=== PATIENT | male | born 1975 | race Caucasian/White ===

== ENCOUNTER → 2021-06-11 09:38 | Outpatient (CLI) | payer BC, SELFPAY ==
--- NOTE | 2021-06-11 12:00 | CT_ITS ---
EXAM: CT ABDOMEN WITH INTRAVENOUS CONTRAST CLINICAL INDICATION: A large gallbladder TECHNIQUE: Helically acquired images were obtained of the abdomen with intravenous contrast. This CT exam was performed using one or more of the following dose reduction techniques: automated exposure control, adjustment of the mA and/or kV according to patient size, and/or use of iterative reconstruction technique. This report was created using Intellistream report generation technology. Oral contrast was administered. Coronal and sagittal reformatted images were created and reviewed. CONTRAST: 100 mL Isovue-300 COMPARISON: None. FINDINGS: LOWER THORAX: Unremarkable. Lung bases are clear. No cardiomegaly. No significant pericardial effusion. LIVER: Unremarkable. Homogeneous. No focal mass. GALLBLADDER AND BILE DUCTS: Unremarkable. No calcified gallstones. No gallbladder distention or wall edema. No intra- or extrahepatic biliary ductal dilation. PANCREAS: Unremarkable. No focal cystic or solid mass. SPLEEN: Unremarkable. Normal size without focal cystic or solid mass. ADRENALS: Unremarkable. No nodules. KIDNEYS AND URETERS: Unremarkable. Normal renal size and position. No hydronephrosis. STOMACH AND BOWEL: Oral contrast filled structure of the right anterolateral abdomen measures 3.9 x 6.4 cm on image 58 of series 2 and appears to be contiguous with bowel on image 30 of series 601. Dependent calcification is noted within the lumen. No stomach or bowel distention. No focal inflammatory change. INTRAPERITONEAL SPACE: Unremarkable. No ascites or other fluid collection. No free air. BONES/JOINTS: Unremarkable. No suspicious lytic or blastic abnormality. SOFT TISSUES: Very small periumbilical fat-containing hernia. VASCULATURE: Mild atherosclerosis. Abdominal aorta is non-dilated. LYMPH NODES: No enlarged lymph nodes. CT/Abdomen WITH IV Contrast IMPRESSION: 1. No gallbladder wall thickening or pericholecystic fluid/inflammation. No intrahepatic bile duct dilation. 2. Suspect small bowel diverticulum of the right abdomen with luminal calcification/calculus. No associated inflammation or wall thickening. Electronically Signed: Kaden Alvarado MD (Brooks) at 12:20 EST , Service support ,
[2021-06-12 13:50] LABS: Carcinoembryonic Antigen 0.6 ng/mL (0.0-4.7)
== END ==
LOC: CT 09:38
PROVIDERS: PCP Internal Medicine; Visit Provider Surgery
DX: K82.8 Other specified diseases of gallbladder (principal); K80.10 Calculus of gallbladder with chronic cholecystitis without obstruction
CPT/HCPCS: 74160; 82378; 86301; Q9967; A4216

== ENCOUNTER 2021-06-16 09:43 | Outpatient (CLI) | payer OTHER, SELFPAY ==
--- NOTE | 2021-06-16 09:56 | NM_ITS ---
CLINICAL: 46-year-old male with reported history of apparent abdominal pain. RADIONUCLIDE HEPATOBILIARY SCINTIGRAPHY COMPARISON: CT of the abdomen report 06/11/2021 FINDINGS: Following the intravenous administration of 5.2 mCi of 99m Tc Mebrofenin, hepatobiliary images reveal: 1. Relatively prompt and homogeneous radiopharmaceutical concentration is noted by a normal sized liver. No parenchymal defects are identified. 2. Gallbladder activity is not identified during 120 minutes of sequential imaging. 3. Small intestinal tract is observed at 15 minutes post radiopharmaceutical administration. 4. Washout of the radiopharmaceutical by the hepatic parenchyma appears qualitatively normal. NM/Hepatobilliary Img w/Pharm Int IMPRESSION: 1. ABNORMAL 99m Tc Mebrofenin hepatobiliary imaging examination. A. Nonvisualization of the gallbladder at 120 minutes post radiopharmaceutical administration in the nonacute setting is consistent with a high probability of chronic cholecystitis in patients with intermediate to high pretest probabilities of hepatobiliary disease and who have fasted for more than 4 and less than 24 hours. (Yo et al, Nucl Med [facility] [place] Press pg. 35, 1980). Electronically Signed: Jorje Chaney DO at 22:08 EST Tel , Service support ,
== END 2021-06-16 23:59 | disposition short-term general hospital (02) ==
LOC: NM 09:48
PROVIDERS: PCP Internal Medicine; Referring Provider Surgery; Visit Provider Surgery
DX: K82.8 Other specified diseases of gallbladder (principal); K80.10 Calculus of gallbladder with chronic cholecystitis without obstruction
CPT/HCPCS: 78227; A9537

== ENCOUNTER 2021-06-18 07:53 | Outpatient (CLI) | payer OTHER, SELFPAY ==
--- NOTE | 2021-06-18 08:15 | RAD_ITS ---
PROCEDURE: SMALL BOWEL SERIES DATE OF EXAMINATION: 06/18/2021.. INDICATION: Male, 46 years old. One-month history of a palpable right upper quadrant mass. PHYSICIAN: Dane Rivero M.D. FLUOROSCOPY TIME (if supplied): (1:10) minutes/seconds. 20 images were obtained. TECHNIQUE: Radiographic and fluoroscopic images were taken of the small intestine following the ingestion of barium. COMPARISON: None. FINDINGS: A preliminary supine KUB was obtained. There is an unremarkable bowel gas pattern. Fecal material is present throughout the colon. A 3.2 cm x 3.4 cm rounded calcification in the medial right mid abdomen. The lung bases are unremarkable. The osseous structures are normal. The patient orally ingested approximately 12 ounces of thin barium Normal visualized fundus, body, and antrum of the stomach. Mildly distended jejunal loops. Normal visualized mucosal folds of the jejunum and ileum. There are no demonstrated dilatations, strictures, or masses of the small intestine. There is no mass displacement of the loops of small intestine. On the 180 minute image, there is a 5.8 cm x 7.2 cm rounded circumscribed structure with contrast within it. This corresponds to the CT abdomen of the containing the calcification. This most likely represents a diverticulum arising from the medial aspect of the distal ascending colon. There is a normal motor pattern with barium reaching the colon within approximately 120 minutes. Spot films under fluoroscopic observation demonstrated a normal terminal ileum and ileocecal valve. RAD/Small Bowel Series Only IMPRESSION: Findings suggestive of a diverticulum measuring 7.2 cm x 5.8 cm arising from the medial aspect of the distal ascending colon. Electronically Signed: Dane Rivero MD at 12:21 EST , Service support ,
== END 2021-06-18 23:59 | disposition short-term general hospital (02) ==
LOC: RAD 07:54
PROVIDERS: PCP Internal Medicine; Referring Provider Surgery; Visit Provider Surgery
DX: R19.00 Intra-abdominal and pelvic swelling, mass and lump, unspecified site (principal)
CPT/HCPCS: 74250

== ENCOUNTER 2021-06-27 08:01 | Day surgery (SDC) | payer OTHER, SELFPAY ==
--- NOTE | 2021-06-27 08:31 | HP.PCM_ITS ---
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 On June 11, 2021 CEA level 0.6 and CA 19-9 was 9 which is normal. On June 11, 2021 at the [facility] had a CT scan of the abdomen with contrast. No gallbladder wall thickening or pericholecystic fluid was commented upon however to me the gallbladder is markedly enlarged and appears to indent the right upper quadrant musculature. On the CT scan there was felt to be a small bowel diverticulum but again with no associated inflammat ion. It there was a 3.9 x 6.4 cm area with a calcified structure within the lumen. This was felt to be in the small bowel. On June 16, 2021 he had a hepatobiliary scan. Nonvisualization of the g allbladder identified. The remainder of the study was normal. On June 18, 2021 had a small bowel series. This suggested that there is a 7.2 x 5.8 cm diverticulum arising from the medial aspect of the distal ascending colon. This seems to refute this CT scan suggesting that this was a small bowel diverticulum. There remains concerned as to whether the palpable mass that the patient is detecting is the gallbladder or is the diverticulum now suspected to be of the ascending colon and possible deference to the small bowel. The patient still has a palpable mass right upper quadrant. No fever or chills or sweats or nausea or vomiting. Unfortunately it remains unclear as to whether that palpable item is gallbladder aware that that palpable item is a ascending colon diverticulum or whether the patient actually has a small bowel diverticulum. 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 Macho Gómez MD) Cholelithiasis Enlarged gallbladder Family History (Updated 06/11/21 @ 08:09 by Amanda Wednesday) Father Cancer Diabetes Social History (Updated 06/11/21 @ 08:09 by Amanda Wednesday) Smokeless tobacco user: snuff alcohol intake: current substance use type: does not use HPI HPI HPI: ZEV ROA, is a 46 M who presents to the office today for gallbladder disease. The patient is being referred by Dr. Troy Saleem and a written copy my surgical consult recommendations will return to him. For evaluation of a right sided mass right upper quadrant ultrasound was obtained on June 04, 2021 at [facility]. Multiple stones were noted. The gallbladder wall thickness was normal. The length of the gallbladder was 14 cm. The common bile duct was normal at 3.8 mm. Liver function tests were normal. The patient states that he has not had any nausea or vomiting or fever. He has not had any pain. 3 weeks or so ago he simply was checking his abdomen could feel this mass. He states sometimes it is in the right mid abdomen sometimes right subcostal sometimes epigastric area. It is nontender. For ever he has had some diarrhea after eating salads that is not new. He states that currently after eating his bowels will gurgle more. He has had no jaundice. No change of his urine color. No unexpected weight loss. He is not any abdominal operations. He states that he has a history of a supraumbilical hernia. He was instructed to lose weight. 5 years ago he had a right Achilles tendon injury and subsequent that developed a DVT. He was treated for that and resolved. The patient has not had COVID-19 vaccination ROS General General: No weight change, appetite, fatigue, colon cancer, breast cancer or weakness HEENT HEENT: No difficulty swallowing, eye injury, eye surgery, swollen glands or hoar seness Endo Endocrine: No thyroid disease, diabetes mellitus, thyroid cancer, Hair loss, heat intolerance or cold intolerance Skin Skin: No rash or changing moles Musc Musculoskeletal: No back problems, arthritis, rheumatoid arthritis, gout or joint pain Cardio Cardiovascular: No murmur, pacemaker, heart disease, atrial fibrillation, high blood pressure, heart attack, heart stent, palpitations, shortness of breat with exertion or chest pain Psych Psychiatric: No depression, anxiety or hearing voices Resp Respiratory: No shortness of breath, No sleep apnea, No cough, No COPD, No asthma, No emphysema and No wheezing Gastro Gastrointestinal: No abdominal pain, No nausea or vomiting, No diarrhea, No constipation, No blood in stool, No acid reflux, No hemorrhoids, No ulcers, Yes gallbladder problem and No black,tarry stools Henri Hematologic: No blood thinners, No blood disorders, No bleeding, No anemia and No blood clots Neuro Neurologic: No system reviewed and no additional complaints, except as documented, No as per HPI, No abnormal gait, No abnormal hearing, No abnormal movements, No abnormal speech, No behavioral changes, No burning sensations, No confusion, No convulsions, No disequilibrium, No dizziness, No localized weakness, No frequent falls, No headache(s), No lack of coordination, No loss of vision, No memory loss, No numbness, No other visual disturbances, No radicular pain, No restless legs, No sensory deficit, No syncope, No tingling, No tremor(s), No weakness and No other Exam Const General: cooperative, comfortable and no acute distress Nutritional Appearance: obese Orientation: alert, awake and oriented x3 HENMT Head: normal to inspection Eyes General: appearance normal, both eyes and all related structures Neck Neck: normal visual inspection Chest Chest palpation & inspection: normal inspection of the chest Cardio Palpation: normal PMI Rate: regular rate Rhythm: regular rhythm GI Inspection: normal to inspection Other: Soft, normal bowel sounds, palpable right upper quadrant mass that is mobile, absolutely nontender, no guarding, no rebound I am not able to palpate any umbilical defect Musc Cervical Spine: normal cervical lordosis Skin General: no rashes or lesions noted Neuro Cognition: normal cognition Extrem Other: 1+ bilateral extremity nonpitting swelling Psych Appearance: grossly normal Assessment and Plan Assessment and Plan (1) Enlarged gallbladder: Status: Acute (2) Cholelithiasis: Status: Acute Qualifiers: Cholelithiasis location: gallbladder Cholecystitis presence: with cholecystitis Cholecystitis acuity: chronic Biliary obstruction: without biliary obstruction Qualified Code(s): K80.10 - Calculus of gallbladder with chronic cholecystitis without obstruction (3) Ventral hernia: Status: Acute Qualifiers: Obstruction and gangrene presence: without obstruction or gangrene Qualified Code(s): K43.9 - Ventral hernia without obstruction or gangrene Orders: Orders: Abdomen/Pelvis WITH Contrast Today K82.8 CA 19-9 Serial Monitor Today K82.8 CEA Serial Monitor Today K82.8 Plan - Dr. Macho Gómez MD: The patient has completely asymptomatic enlargement of the gallbladder. This is consistent with hydrops of the gallbladder but his presentation is very odd as at no point has he had any symptomatology. He additionally reports a long-term history of a supraumbilical ventral hernia just at the upper edge of the umbilicus. His body habitus precludes by palpation He has had a history of right Achilles injury and surgery 5 years ago with subsequent DVT. He has not had any spontaneous DVTs since that time BMI is increased at 39% I recommend to him that we obtain a CEA and CA 19-9 level. Recommend that we obtain a abdominal pelvic fully contrasted CT scan. Very careful inspection for any adenopathy or any potential suggestion of gallbladder malignancy. If on remarkable then I have discussed with the patient the technique, benefit, risk and alternatives of laparoscopic cholecystectomy with cholangiography. He has had an opportunity to ask and have questions answered and we would proceed as noted. If the CT imaging is abnormal then would consider referral to hepatobiliary specialty Regarding the patient's ventral hernia will confirm on CT imaging and likely anticipate the umbilical incision at that position to assist with surgical remedy at that time. The patient is aware that this would be a suture repair and that mesh would not be utilized. He is aware of the increased risk of recurrence. I appreciate the opportunity of assisting with surgical care. We will try to expedite his management. Copy: Dr. Troy Gómez M.D., F.A.C.S. ASIM General General: No weight change, appetite, fatigue, colon cancer, breast cancer or weakness HEENT HEENT: No difficulty swallowing, eye injury, eye surgery, swollen glands or hoarseness Endo Endocrine: No thyroid disease, diabetes mellitus, thyroid cancer, Hair loss, heat intolerance or cold intolerance Skin Skin: No rash or changing moles Musc Musculoskeletal: No back problems, arthritis, rheumatoid arthritis, gout or joint pain Cardio Cardiovascular: No murmur, pacemaker, heart disease, atrial fibrillation, high blood pressure, heart attack, heart stent, palpitations, shortness of breat with exertion or chest pain Psych Psychiatric: No depression, anxiety or hearing voices Resp Respiratory: No shortness of breath, No sleep apnea, No cough, No COPD, No asthma, No emphysema and No wheezing Gastro Gastrointestinal: No abdominal pain, No nausea or vomiting, No diarrhea, No constipation, No blood in stool, No acid reflux, No hemorrhoids, No ulcers, Yes gallbladder problem and No black,tarry stools Henri Hematologic: No blood thinners, No blood disorders, No bleeding, No anemia and No blood clots Neuro Neurologic: No system reviewed and no additional complaints, except as documented, No as per HPI, No abnormal gait, No abnormal hearing, No abnormal movements, No abnormal speech, No behavioral changes, No burning sensations, No confusion, No convulsions, No disequilibrium, No dizziness, No localized weakness, No frequent falls, No headache(s), No lack of coordination, No loss of vision, No memory loss, No numbness, No other visual disturbances, No radicular pain, No restless legs, No sensory deficit, No syncope, No tingling, No tremor(s ), No weakness and No other Assessment and Plan Assessment and Plan (1) Abdominal mass: Status: Acute Qualifiers: Abdominal location: right upper quadrant Qualified Code(s): R19.01 - Right upper quadrant abdominal swelling, mass and lump (2) Cholelithiasis: Status: Acute Qualifiers: Biliary obstruction: without biliary obstruction Cholecystitis acuity: chronic Cholecystitis presence: with cholecystitis Cholelithiasis location: gallbladder Qualified Code(s): K80.10 - Calculus of gallbladder with chronic cholecystitis without obstruction (3) Cholelithiasis with chronic cholecystitis: Status: Chronic Qualifiers: Biliary obstruction: without biliary obstruction Cholelithiasis location: gallbladder Qualified Code(s): K80.10 - Calculus of gallbladder with chronic cholecystitis without obstruction (4) Diverticulum of large intestine: Status: Acute Plan - Dr. Macho Gómez MD: I recommended the patient to colonoscopy with possible biopsy or polypectomy as indicated. He is aware of the technique, benefit, risk and alternatives. Very careful inspection of the ascending colon will be pursued in attempt to identify a possible diverticulum in that location. Subsequent to that we will use this information decide whether he simply needs a laparoscopic cholecystectomy or whether he would benefit from a laparoscopic cholecystectomy plus a laparoscopic right colectomy. As noted above it remains unclear as to whether he has a ascending colon diverticulum with calcification or whether he has a small bowel diverticulum. The CT scan suggests small bowel. The small bowel follow-through suggested possible colon etiology. He has had an opportunity to ask and have questions answered. We will schedule and expedite his care. Macho Gómez M.D., F.A.C.S. I have re-examined the patient. There are no clinical changes since date of exam.
[2021-06-27 08:41] VITALS: BP 111/67; PULSE 44; RESP 16; TEMP 36.2; O2SAT 99; BMI 38.2
[2021-06-27] MEDS: Lactated Ringers 1,000 ML 15 ML IV (09:08)
--- NOTE | 2021-06-27 10:00 | OP.CCLET_ITS ---
06/27/2021 Troy Saleem Re : Colonoscopy procedure for Jose Wood Dear Harper This procedure was performed on Sunday, June 27, 2021. My impressions and recommendations are as follows: Impressions : - Preparation of the colon was fair. - The entire examined colon is normal. - No specimens collected. Recommendations : - Discharge patient to home. - Resume previous diet. - Continue present medications. - Repeat colonoscopy in 10 years for screening purposes. - Telephone my office in 3 days. No ascending colon diverticulum identified My findings are described in the full procedure note, which is enclosed. If I can be of further assistance, please feel free to contact me at Doctor phone number(s): Work: . Sincerely, Macho Gómez MD 06/27/2021 9:59:56 AM This report has been signed electronically.
--- NOTE | 2021-06-27 10:00 | OP.COLON_ITS ---
Patient Name: Jose Wood Procedure Date: 06/27/2021 9:29 AM Date of : 1975 Age: 46 Procedure: Colonoscopy Indications: Abnormal CT of the GI tract, Abnormal small bowel series Providers: Macho Gómez MD Medicines: See the Anesthesia note for documentation of the administered medications Patient Profile: Last Colonoscopy: none. The patient's first colonoscopy is today. Complications: No immediate complications. Procedure: Pre-Anesthesia Assessment: - Prior to the procedure, a History and Physical was performed, and patient medications and allergies were reviewed. The patient's tolerance of previous anesthesia was also reviewed. The risks and benefits of the procedure and the sedation options and risks were discussed with the patient. All questions were answered, and informed consent was obtained. Prior Anticoagulants: The patient has taken no previous anticoagulant or antiplatelet agents. ASA Grade Assessment: II - A patient with mild systemic disease. After reviewing the risks and benefits, the patient was deemed in satisfactory condition to undergo the procedure. After I obtained informed consent, the scope was passed under direct vision. Throughout the procedure, the patient's blood pressure, pulse, and oxygen saturations were monitored continuously. The colonoscope was introduced through the anus and advanced to the cecum, identified by appendiceal orifice and ileocecal valve. The colonoscopy was performed without difficulty. The patient tolerated the procedure well. The quality of the bowel preparation was fair. The ileocecal valve and the appendiceal orifice were photographed. Scope In: 9:38:23 AM Scope Withdrawal Time 0 hours 6 minutes 13 seconds Scope Out: 9:54:32 AM Total Procedure Duration Time 0 hours 16 minutes 9 seconds Findings: The perianal and digital rectal examinations were normal. The colon (entire examined portion) appeared normal. Impression: - Preparation of the colon was fair. - The entire examined colon is normal. - No specimens collected. Recommendation: - Discharge patient to home. - Resume previous diet. - Continue present medications. - Repeat colonoscopy in 10 years for screening purposes. - Telephone my office in 3 days. No ascending colon diverticulum identified Procedure Code(s): --- Professional --- 98445, Colonoscopy, flexible; diagnostic, including collection of specimen(s) by brushing or washing, when performed (separate procedure) Diagnosis Code(s): --- Professional --- R93.3, Abnormal findings on diagnostic imaging of other parts of digestive tract CPT copyright 2017 [employer]. All rights reserved. The codes documented in this report are preliminary and upon orthopedic dentist review may be revised to meet current compliance requirements. Macho Gómez MD 06/27/2021 9:59:56 AM This report has been signed electronically. Number of Addenda: 0 Note Initiated On: 06/27/2021 9:29 AM
[2021-06-27 10:01] VITALS: BP 111/67; BP 91/66; PULSE 43; RESP 16; TEMP 36.4; O2SAT 100
--- NOTE | 2021-06-27 10:04 | EKG12_ITS ---
Test Reason : BRADYCARDIA Blood Pressure : / mmHG Vent. Rate : 047 BPM Atrial Rate : 047 BPM P-R Int : 176 ms QRS Dur : 108 ms QT Int : 472 ms P-R-T Axes : 060 040 030 degrees QTc Int : 417 ms Sinus bradycardia Otherwise normal ECG No previous ECGs available Confirmed by MARY CHEATHAM, ALEXANDER ([id number]), industrial editor DIONTE LARIOS ([id number]) on 07/01/2021 9:37:16 AM Referred By: Troy Saleem Confirmed By:ALEXANDER HERNANDEZ MD
[2021-06-27 10:05] VITALS: BP 110/69; BP 111/67; PULSE 48; RESP 16; O2SAT 100
[2021-06-27 10:10] VITALS: BP 110/68; BP 111/67; PULSE 46; RESP 16; O2SAT 99
[2021-06-27 10:20] VITALS: BP 111/67; BP 115/62; PULSE 44; RESP 16; O2SAT 98
== END 2021-06-27 23:59 | disposition home or self-care (01) ==
LOC: EN 08:05 → AC 08:06
PROVIDERS: PCP Internal Medicine; Referring Provider Internal Medicine; Visit Provider Surgery
PROC: 0DJD8ZZ Inspection of Lower Intestinal Tract, Via Natural or Artificial Opening Endoscopic (ICD-10-PCS; CPT 45378; principal; 2021-06-27 09:10)
DX: R93.3 Abnormal findings on diagnostic imaging of other parts of digestive tract (principal); K82.8 Other specified diseases of gallbladder; K80.10 Calculus of gallbladder with chronic cholecystitis without obstruction; K43.9 Ventral hernia without obstruction or gangrene; K57.30 Diverticulosis of large intestine without perforation or abscess without bleeding; R19.01 Right upper quadrant abdominal swelling, mass and lump; Z20.822 Contact with and (suspected) exposure to COVID-19
CPT/HCPCS: 45378; 87426; 93005; J7120; J2405

== ENCOUNTER 2021-07-14 05:24 | Inpatient (IN) | payer OTHER, SELFPAY ==
[2021-07-07 09:47] LABS: Absolute Lymphocyte Count 2.66 X10^3/uL (0.83-4.51); Absolute Neutrophil Count 3.3 X10^3/uL (2.0-7.7); Basophil# 0.04 X10^3/uL; Basophil% 0.6 % (0-1); Eosinophil# 0.31 X10^3/uL; Eosinophils% 4.5 % (0-5); Hematocrit 45.4 % (40-54); Hemoglobin 14.5 g/dL (13.0-16.5); Lymphocyte # 2.66 X10^3/ul (0.83-4.51); Lymphocyte % 38.6 % (19-41); Mean Corp Hgb Conc 31.9 g/dL (32-36); Mean Corpuscular Hgb 28.8 pg (27.0-32.0); Mean Corpuscular Volume 90.3 fL (80-94); Mean Platelet Vol. 12.1 fl (6.2-12.0); Monocyte# 0.56 X10^3/uL; Monocyte% 8.1 % (0-10); NRBC Flagged by Analyzer 0 % (0-5); Neutrophil % 47.9 % (47-70); Platelet Count 175 K/mm3 (150-450); RBC Distribution Width CV 13.3 % (11.6-14.6); Red Blood Count 5.03 M/mm3 (4.6-6.2); White Blood Count 6.9 K/mm3 (4.4-11.0)
[2021-07-07 10:19] LABS: Anion Gap 4 (5-15); BUN 19 mg/dL (7-18); BUN/Creat Ratio 22.1 RATIO (10-20); Calcium,Total 8.9 mg/dL (8.5-10.1); Chloride 108 mmol/L (98-107); Creatinine, Serum 0.86 mg/dL (0.70-1.30); EST Glomerular Filtration Rate 101 mL/min (>60); Est Glom Filt Rate - Afr Amer 122 mL/min (>60); Glucose 89 mg/dL (74-106); Potassium 4.2 mmol/L (3.5-5.1); Sodium Level 139 mmol/L (136-145)
[2021-07-14] VITALS (11 sets, daily range): BP systolic 112–151; BP diastolic 50–92; PULSE 43–65; RESP 16–20; TEMP 36.4–36.9; O2SAT 93–100; BMI 38.9
--- NOTE | 2021-07-14 05:43 | PCM.HP.BLA ---
History and Physical Date of Admission: 07/14/21 Visit Reasons: Discuss results and c-scope/surgery Chief Complaint: Discuss results and c-scope/surgery Head Start Coordinator Required: No Is patient in pain?: No Allergies diphenhydramine [From Benadryl] Adverse Reaction (Mild, Verified 06/23/21 12:35) finger tips turn bright red Medications NK 06/11/21 [History Confirmed 06/23/21] FOR[facility]LY [facility], LATER [facility] Medical History Abdominal mass Cholelithiasis Enlarged gallbladder Family History Father Cancer Diabetes Social History Smokeless tobacco user: snuff alcohol intake: current substance use type: does not use HPI HPI HPI: ZEV ROA, is a 46 M who presents to the office today for ongoing follow-up regarding palpable abdominal mass. On June 11, 2021 CEA level 0.6 and CA 19-9 was 9 which is normal. On June 11, 2021 at the [facility] he had a CT scan of the abdomen with contrast. No gallbladder wall thickening or pericholecystic fluid was commented upon however to me the gallbladder is markedly enlarged and appears to indent the right upper quadrant musculature. On the CT scan there was felt to be a small bowel diverticulum but again with no associated inflammation. It there was a 3.9 x 6.4 cm area with a calcified structure within the lumen. This was felt to be in the small bowel. On June 16, 2021 he had a hepatobiliary scan. Nonvisualization of the gallbladder identified. The remainder of the study was normal. On June 18, 2021 had a small bowel series. This suggested that there is a 7.2 x 5.8 cm diverticulum arising from the medial aspect of the distal ascending colon. This seems to refute this CT scan suggesting that this was a small bowel diverticulum. There remains concerned as to whether the palpable mass that the patient is detecting is the gallbladder or is the diverticulum now suspected to be of the ascending colon and possible deference to the small bowel. The patient still has a palpable mass right upper quadrant. No fever or chills or sweats or nausea or vomiting. Unfortunately it remains unclear as to whether that palpable item is gallbladder aware that that palpable item is a ascending colon diverticulum or whether the patient actually has a small bowel diverticulum. My previous notes reflect the following Intake Visit Reasons: GALLBLADDER REFERRAL Chief Complaint: gallbladder referral Head Start Coordinator Required: No Is patient in pain?: No Medications NK 06/11/21 [History Confirmed 06/11/21] FOR[facility]LY [facility], LAT[facility] Medical History (Updated 06/11/21 @ 08:[address] Macho Gómez MD) Cholelithiasis Enlarged gallbladder Family History (Updated 06/11/21 @ 08:09 by Amanda Wednesday) Father Cancer Diabetes Social History (Updated 06/11/21 @ 08:09 by Amanda Wednesday) Smokeless tobacco user: snuff alcohol intake: current substance use type: does not use HPI HPI HPI: ZEV ROA, is a 46 M who presents to the office today for gallbladder disease. The patient is being referred by Dr. Troy Saleem and a written copy my surgical consult recommendations will return to him. For evaluation of a right sided mass right upper quadrant ultrasound was obtained on June 04, 2021 at [facility]. Multiple stones were noted. The gallbladder wall thickness was normal. The length of the gallbladder was 14 cm. The common bile duct was normal at 3.8 mm. Liver function tests were normal. The patient states that he has not had any nausea or vomiting or fever. He has not had any pain. 3 weeks or so ago he simply was checking his abdomen could feel this mass. He states sometimes it is in the right mid abdomen sometimes right subcostal sometimes epigastric area. It is nontender. For ever he has had some diarrhea after eating salads that is not new. He states that currently after eating his bowels will gurgle more. He has had no jaundice. No change of his urine color. No unexpected weight loss. He is not any abdominal operations. He states that he has a history of a supraumbilical hernia. He was instructed to lose weight. 5 years ago he had a right Achilles tendon injury and subsequent that developed a DVT. He was treated for that and resolved. The patient has not had COVID-19 vaccination ROS General General: No weight change, appetite, fatigue, colon cancer, breast cancer or weakness HEENT HEENT: No difficulty swallowing, eye injury, eye surgery, swollen glands or hoarseness Endo Endocrine: No thyroid disease, diabetes mellitus, thyroid cancer, Hair loss, heat intolerance or cold intolerance Skin Skin: No rash or changing moles Musc Musculoskeletal: No back problems, arthritis, rheumatoid arthritis, gout or joint pain Cardio Cardiovascular: No murmur, pacemaker, heart disease, atrial fibrillation, high blood pressure, heart attack, heart stent, palpitations, shortness of breat with exertion or chest pain Psych Psychiatric: No depression, anxiety or hearing voices Resp Respiratory: No shortness of breath, No sleep apnea, No cough, No COPD, No asthma, No emphysema and No wheezing Gastro Gastrointestinal: No abdominal pain, No nausea or vomiting, No diarrhea, No constipation, No blood in stool, No acid reflux, No hemorrhoids, No ulcers, Yes gallbladder problem and No black,tarry stools Henri Hematologic: No blood thinners, No blood disorders, No bleeding, No anemia and No blood clots Neuro Neurologic: No system reviewed and no additional complaints, except as documented, No as per HPI, No abnormal gait, No abnormal hearing, No abnormal movements, No abnormal speech, No behavioral changes, No burning sensations, No confusion, No convulsions, No disequilibrium, No dizziness, No localized weakness, No frequent falls, No headache(s), No lack of coordination, No loss of vision, No memory loss, No numbness, No other visual disturbances, No radicular pain, No restless legs, No sensory deficit, No syncope, No tingling, No tremor(s), No weakness and No other Exam Const General: cooperative, comfortable and no acute distress Nutritional Appearance: obese Orientation: alert, awake and oriented x3 HENMT Head: normal to inspection Eyes General: appearance normal, both eyes and all related structures Neck Neck: normal visual inspection Chest Chest palpation & inspection: normal inspection of the chest Cardio Palpation: normal PMI Rate: regular rate Rhythm: regular rhythm GI Inspection: normal to inspection Other: Soft, normal bowel sounds, palpable right upper quadrant mass that is mobile, absolutely nontender, no guarding, no rebound I am not able to palpate any umbilical defect Musc Cervical Spine: normal cervical lordosis Skin General: no rashes or lesions noted Neuro Cognition: normal cognition Extrem Other: 1+ bilateral extremity nonpitting swelling Psych Appearance: grossly normal Assessment and Plan Assessment and Plan (1) Enlarged gallbladder: Status: Acute (2) Cholelithiasis: Status: Acute Qualifiers: Cholelithiasis location: gallbladder Cholecystitis presence: with cholecystitis Cholecystitis acuity: chronic Biliary obstruction: without biliary obstruction Qualified Code(s): K80.10 - Calculus of gallbladder with chronic cholecystitis without obstruction (3) Ventral hernia: Status: Acute Qualifiers: Obstruction and gangrene presence: without obstruction or gangrene Qualified Code(s): K43.9 - Ventral hernia without obstruction or gangrene Orders: Orders: Abdomen/Pelvis WITH Contrast Today K82.8 CA 19-9 Serial Monitor Today K82.8 CEA Serial Monitor Today K82.8 Plan - Dr. Macho Gómez MD: The patient has completely asymptomatic enlargement of the gallbladder. This is consistent with hydrops of the gallbladder but his presentation is very odd as at no point has he had any symptomatology. He additionally reports a long-term history of a supraumbilical ventral hernia just at the upper edge of the umbilicus. His body habitus precludes by palpation He has had a history of right Achilles injury and surgery 5 years ago with subsequent DVT. He has not had any spontaneous DVTs since that time BMI is increased at 39% I recommend to him that we obtain a CEA and CA 19-9 level. Recommend that we obtain a abdominal pelvic fully contrasted CT scan. Very careful inspection for any adenopathy or any potential suggestion of gallbladder malignancy. If on remarkable then I have discussed with the patient the technique, benefit, risk and alternatives of laparoscopic cholecystectomy with cholangiography. He has had an opportunity to ask and have questions answered and we would proceed as noted. If the CT imaging is abnormal then would consider referral to hepatobiliary specialty Regarding the patient's ventral hernia will confirm on CT imaging and likely anticipate the umbilical incision at that position to assist with surgical remedy at that time. The patient is aware that this would be a suture repair and that mesh would not be utilized. He is aware of the increased risk of recurrence. I appreciate the opportunity of assisting with surgical care. We will try to expedite his management. Copy: Dr. Troy Gómez M.D., F.A.C.S. ROS General General: No weight change, appetite, fatigue, colon cancer, breast cancer or weakness HEENT HEENT: No difficulty swallowing, eye injury, eye surgery, swollen glands or hoarseness Endo Endocrine: No thyroid disease, diabetes mellitus, thyroid cancer, Hair loss, heat intolerance or cold intolerance Skin Skin: No rash or changing moles Musc Musculoskeletal: No back problems, arthritis, rheumatoid arthritis, gout or joint pain Cardio Cardiovascular: No murmur, pacemaker, heart disease, atrial fibrillation, high blood pressure, heart attack, heart stent, palpitations, shortness of breat with exertion or chest pain Psych Psychiatric: No depression, anxiety or hearing voices Resp Respiratory: No shortness of breath, No sleep apnea, No cough, No COPD, No asthma, No emphysema and No wheezing Gastro Gastrointestinal: No abdominal pain, No nausea or vomiting, No diarrhea, No constipation, No blood in stool, No acid reflux, No hemorrhoids, No ulcers, Yes gallbladder problem and No black,tarry stools Henri Hematologic: No blood thinners, No blood disorders, No bleeding, No anemia and No blood clots Neuro Neurologic: No system reviewed and no additional complaints, except as documented, No as per HPI, No abnormal gait, No abnormal hearing, No abnormal movements, No abnormal speech, No behavioral changes, No burning sensations, No confusion, No convulsions, No disequilibrium, No dizziness, No localized weakness, No frequent falls, No headache(s), No lack of coordination, No loss of vision, No memory loss, No numbness, No other visual disturbances, No radicular pain, No restless legs, No sensory deficit, No syncope, No tingling, No tremor(s), No weakness and No other Assessment and Plan Assessment and Plan (1) Abdominal mass: Status: Acute Qualifiers: Abdominal location: right upper quadrant Qualified Code(s): R19.01 - Right upper quadrant abdominal swelling, mass and lump (2) Cholelithiasis: Status: Acute Qualifiers: Biliary obstruction: without biliary obstruction Cholecystitis acuity: chronic Cholecystitis presence: with cholecystitis Cholelithiasis location: gallbladder Qualified Code(s): K80.10 - Calculus of gallbladder with chronic cholecystitis without obstruction (3) Cholelithiasis with chronic cholecystitis: Status: Chronic Qualifiers: Biliary obstruction: without biliary obstruction Cholelithiasis location: gallbladder Qualified Code(s): K80.10 - Calculus of gallbladder with chronic cholecystitis without obstruction (4) Diverticulum of large intestine: Status: Acute Plan - Dr. Macho Gómez MD: I recommended the patient to colonoscopy with possible biopsy or polypectomy as indicated. He is aware of the technique, benefit, risk and alternatives. Very careful inspection of the ascending colon will be pursued in attempt to identify a possible diverticulum in that location. Subsequent to that we will use this information decide whether he simply needs a laparoscopic cholecystectomy or whether he would benefit from a laparoscopic cholecystectomy plus a laparoscopic right colectomy. As noted above it remains unclear as to whether he has a ascending colon diverticulum with calcification or whether he has a small bowel diverticulum. The CT scan suggests small bowel. The small bowel follow-through suggested possible colon etiology. He has had an opportunity to ask and have questions answered. We will schedule and expedite his care. Macho Gómez M.D., F.A.C.S. On June 27 I performed a colonoscopy on him. I felt that this was normal. I could not identify any diverticulum at that time. On further review of the previous CT scan would appear that the suspected diverticulum fills before contrast reaches the right colon. The patient is aware that I believe that the palpable mass reflects his gallbladder. I believe that is the primary goal of the procedure to perform a laparoscopic cholecystectomy with selective cholangiograms. A careful exploration for potential small or large bowel diverticulum will be pursued. As this may cause a reactive ileus patient may need to be observed overnight. He may require a bowel resection to remove the area of concern. He is aware of technique, benefit, risks, alternatives. He is aware that if a segment of bowel is resected then a ventral incision will be required for removal. He has had an opportunity to ask and have questions answered. We will proceed as noted. He still has the palpable nontender right upper quadrant abdominal mass for which she was initially referred. Macho Gómez M.D., F.A.C.S.
[2021-07-14] MEDS: Lactated Ringers 1,000 ML 15 ML IV (05:57)
--- NOTE | 2021-07-14 07:30 | HERN_PTH ---
PATIENT: ZEV ROA LOC: MS3 U#:[id number] AGE/SX: 46/M ROOM: SC313 RE07/14/[address]: Dr. Macho Gómez MD : 1975 BED: 1 DIS: 07/16/2021 SPEC #: [id number] RECD: 07/14/21 15:53 STATUS: BRY SOTO #: [id number] YAHAIRA: 07/14/21 07:[address]: Macho Gómez DEPT: SURGICAL PATHOLOGY RECD BY: Brittny Power ENTERED: 07/15/21 09:37 SP TYPE: Hernia OTHR DR: Dr. Troy Saleem MD Tissues: A - HERNIA B - Gallbladder, NOS C - Small intestine mucous membrane Procedures: Surgery Specimen Level II Surgery Specimen Level III Surgery Specimen Level V HEADER OPERATION: Laparoscopic cholecystectomy with IOC, supraumbilical ventral hernia PRE-OP DIAGNOSIS: Enlarged gallbladder, cholelithiasis, supraumbilical ventral hernia TISSUE SUBMITTED: A - Supraumbilical ventral hernia sac, B - Gallbladder, C - Meckel?s small bowel diverticulum MICROSCOPIC DIAGNOSIS A. Supraumbilical ventral soft tissue, excision: Fragments of fibrofatty tissue consistent with hernia sac. B. Gallbladder, cholecystectomy: Chronic cholecystitis and cholelithiasis. C. Small bowel segment and diverticulum, segmental excision: Consistent with Meckel?s diverticulum. Uninvolved segment of small bowel with no pathologic change. Attached fibrofatty tissue with vascular congestion. Margins of excision with no pathologic change. AM:moris 07/16/2021 MICROSCOPIC DESCRIPTION Slides are reviewed. GROSS DESCRIPTION A - Received in fixative is one container labeled with the patient's name and designated supraumbilical ventral hernia. The specimen consists of two irregular fragments of fibrofatty tissue that in aggregate measure 6 x 4 x 2 cm. Serial sections reveal homogenous yellow cut surfaces. [employer] sections are submitted in one cassette. B - Received is one container labeled with the patient's name and designated gallbladder. The specimen consists of a previously opened gallbladder measuring 13.5 x 4 x 3 cm. The external surface is smooth and glistening. Focally, it is granular, hemorrhagic and contains cautery artifact. The lumen of the gallbladder contains yellow-green mucoid bile and multiple, multifaceted yellow calculi ranging in size from 0.5 to 0.8 cm in greatest dimension. The mucosa is bile-stained and without any mass lesions. The gallbladder wall averages 0.3 cm in thickness and is free of mass lesions. [employer] sections of the gallbladder and the cystic duct at margin of resection are submitted in one cassette. C - Received in fixative is one container labeled with the patient's name and designated Meckel's small bowel diverticulum. The specimen consists of a saccular segment of small bowel measuring 10 cm in length and 5 cm in average diameter. No gross perforations are identified. The saccular portion contains fecal material. The nonsaccular portion contains normal mucosal folds and free of mass lesions. The saccular portion has smooth, glistening mucosa and is without mass lesions. Dissection of the attached fibrofatty tissue does not reveal nodules resembling lymph nodes. [employer] sections are submitted in six cassettes as follows: 1 ? mucosal margin of excision, 2 & 3 ? uninvolved portion of small bowel, 4?& 5 ? saccular portion of small bowel, 6 ? attached fibrofatty tissue. / AM:moris 07/15/2021 TC:3 CPT: 79220, 35940, 06988
[2021-07-14] MEDS: Cefotetan 2 GM in 0.9% NS 100 ML IV (07:48)
[2021-07-14] MEDS: Bupivacaine Mpf 0.5% 30 ML VIAL (08:12)
--- NOTE | 2021-07-14 08:12 | RAD_ITS ---
STUDY: INTRAOPERATIVE CHOLANGIOGRAM. REASON FOR EXAM: Male, 46 years old. Laparoscopic cholecystectomy. FLUOROSCOPY TIME (if supplied): ( 24.2 seconds ) minutes/seconds. A cine loop of 158 images was submitted. TECHNIQUE: An intraoperative cholangiogram was performed by the surgeon. Imaging was submitted. COMPARISON: None. FINDINGS: The intrahepatic and extrahepatic biliary ducts are unremarkable. No intraluminal filling defect is seen. There is free flow of contrast into the duodenum. RAD/Cholangiogram/ O R,Initial IMPRESSION: Unremarkable intraoperative cholangiogram. Electronically Signed: Dane Rivero MD at 10:12 EST ,
[2021-07-14] MEDS: 0.9% Normal Saline (Pres. free 10 ML Vial (10:00)
[2021-07-14] MEDS: Bupivacaine 0.25% 30 ML Vial (10:00)
[2021-07-14] MEDS: BUPIVACAINE LIPOSOME/PF 20 ML VIAL OPERA.SITE (10:00)
--- NOTE | 2021-07-14 11:02 | OP.PCM_ITS ---
Problems Associated Problem List Diagnoses (1) Ventral hernia: (2) Cholelithiasis with chronic cholecystitis: (3) Diverticulum of large intestine: (4) Hydrops: Report of Operation Date of Procedure: 07/14/21 Pre-Operative Diagnosis: Supraumbilical ventral hernia, chronic cholecystitis cholelithiasis hydrops of the gallbladder, small bowel diverticulum Post-Operative Diagnosis: Supraumbilical ventral hernia, chronic cholecystitis cholelithiasis, hydrops of the gallbladder, small bowel Meckel's diverticulum Surgery/Procedure Performed:: Ventral herniorrhaphy, laparoscopic cholecystectomy with cholangiograms, enterectomy with resection of involved segment of Meckel's diverticulum, bilateral subcostal transabdominis plane block Description of Surgical Findings:: Timeout and informed consent was obtained. 46-year-old gentleman was taken to the operating placed on table underwent general endotracheal intubation esthesia. Cefotetan 2 g were given intravenously. The abdomen was sterilely prepped and draped. Initially 0.5 % Marcaine was used as local anesthetic. Local was instilled and an supraumbilical ventral incision was created in supine so doing a ventral hernia was encountered. This was sharply bluntly dissected free and then amputated with electrocautery. Direct access was gained to the abdomen and the sound catheter was inserted. The abdomen was insufflated with CO2 to a pressure of 10 mmHg pressure. Under laparoscopic visualization 5 mm port was placed in the right subcostal area and one in the epigastrium. Inspection revealed very tense gallbladder and this was clearly the item that the patient was palpating. However there was also a very long Meckel's diverticulum extending from the mid abdomen all the way up to the space adjacent to the gallbladder. I initially did some sharp and blunt dissection to free the apex of the inflamed Meckel's diverticulum. Dissected that back to where I could see both the E. Farren and a ferret bowel. Then addressed the gallbladder. Atrophic and additional 5 mm trochars placed supraumbilically vertically so as to be used for the eventual small bowel resection incision. The gallbladder was distracted tedious blunt and sharp dissection form of the infundibular area. Significant amount of inflammation was encountered. I got the critical window opened and then dissected free until I was left with an anterior cystic artery posterior cystic artery and the cystic duct. Hem-o-rhoda clip was placed on the cystic duct cholangiogram was inserted through a 14-gauge Angiocath and fluoroscopically controlled cholangiograms were obtained. This demonstrated free flow into the small bowel and normal ductal anatomy. The cholangiogram catheter was removed a Hem-o-rhoda clip was placed on the cystic duct stump. The gallbladder then was densely adherent to the liver and this had to be dissected free with electrocautery. And so doing an opening was made in the gallbladder and copious cholesterol faceted gallstones of moderate size emanated. These were carefully plucked and placed inside. I then got the gallbladder complete release placed it within a retrieval bag and carefully placed all of the stones that escaped back into the gallbladder bag. The right upper quadrant subhepatic space was carefully inspected and there is no further stones. It was irrigated to help assist. I placed 2 pieces of fibrillar in the liver bed to assist with hemostasis. At this point I performed a bilateral tap block using Marcaine mixed with Exparel mixed with saline. Under laparoscopic visualization bilateral block was performed in the transabdominal plane. Then I lengthen the supraumbilical vertical incision to include the extraforaminal port site and used electrocautery to incise the fascia. A small wound protector was placed. The Meckel's diverticulum was exited further dissection was performed so as to secure the blood supply to the Meckel's and this was done with a combination of 4-0 silk sutures and 0 Vicryl ties. Then used a DEREK-75 stapler to transect the bowel proximal and distal to the Meckel's. The bowel was then placed [id number] enterotomies were created and using the 75 mm stapler a anastomosis was created. The enterotomy sites were closed with TA 60 stapler. The staple sites were then inverted as was the mesenteric trap with a running 4-0 silk. Very nice approximation of the bowel was achieved healthy bowel was achieved the mesenteric trap was closed there has been no spillage. The bowel was placed back in the abdomen greater omentum overlying. The midline fascia and fascial hernia was closed now with a running #1 Prolene. The fascia then was anesthetized with the same local mixture. Skin edges for the 2 remaining port sites in the midline incision were closed with either interrupted or running septic or 4-0 Monocryl. Remainder of the local was utilized. Sponge and instrument and needle counts were reported to the surgeon to be correct. Blood loss was minimal. He tolerated the procedure well was taken to the recovery room in satisfactory addition apparent complication Specimens gallbladder and segment of small bowel including Meckel's divert iculum. Drains none. Blood loss proximately 100 cc from the liver bed. Macho Gómez M.D., F.A.C.S. Surgeon: Macho Gómez Type of Anesthesia: General and Local Anesthesiologist: Miguelito Bernal
[2021-07-14] MEDS: Acetaminophen 500 MG Tablet 1000 MG PO ×2 (14:30→23:35)
[2021-07-14] MEDS: oxyCODONE 5 MG Tablet PO (14:31)
[2021-07-14] MEDS: 0.9% Saline Lock 10 ML Syringe IV ×2 (14:32→17:53)
[2021-07-14] MEDS: Morphine 2 MG/ML Syringe IV (15:40)
--- NOTE | 2021-07-14 16:25 | PCM.PN.SRG ---
Subjective Subjective Patient has been complaining of right shoulder tip pain since immediately after surgery. Likely pneumoperitoneum related Objective Data Objective Data Vital Signs: Vital Signs Temp Pulse Resp BP Pulse Ox 97.5 F L 59 L 18 136/84 H 98 07/14/21 15:34 07/14/21 15:34 07/14/21 15:34 07/14/21 15:34 07/14/21 15:34 Oxygen Flow Rate (L/min) 2 Oxygen Delivery Method Nasal Cannula Weight: 271 lb 2.697 oz Body Mass Index (BMI) 38.9 Intake & Output: Intake and Output for Last 24 Hours 07/12/21 07/13/21 07/14/21 23:59 23:59 23:59 Intake Total 100 / 100 Balance 100 / 100 Lab / Micro Data Result Diagrams: 07/07/21 08:47 07/07/21 08:47 Micro: Microbiology 07/07/21 09:04 Interface Orders SARS-CoV-2 Antigen (Rapid) - Final Radiography Diagnostic Testing: Radiology Impression Cholangiogram 07/14/21 08:12 IMPRESSION: Unremarkable intraoperative cholangiogram. Electronically Signed: Dane Rivero MD at 10:12 EST , Physical Exam Resp Resp Narrative: Decreased respiratory excursion, splinting GI GI Narrative: Soft, nontender Assessment & Plan Assessment/Plan (1) Ventral hernia: QUALIFIERS: Obstruction and gangrene presence: without obstruction or gangrene Qualified Code(s): K43.9 - Ventral hernia without obstruction or gangrene (2) Cholelithiasis with chronic cholecystitis: QUALIFIERS: Cholelithiasis location: gallbladder Biliary obstruction: without biliary obstruction Qualified Code(s): K80.10 - Calculus of gallbladder with chronic cholecystitis without obstruction (3) Diverticulum of large intestine: (4) Hydrops: PLAN: Patient had a difficult laparoscopic resection from the subhepatic space. It was hemostatic at the completion of procedure and fibrillar was placed to assist. I suspect that the patient's shoulder tip pain is secondary to the pneumoperitoneum. His abdominal exam is pain-free particularly in the right upper quadrant. I will allow 1 dose of Toradol for assistance. The patient was found chewing tobacco. I have vigorously encouraged him to cease this during his hospitalization. Need to mobilize the patient as soon as possible. Macho Gómez M.D., F.A.C.S.
--- NOTE | 2021-07-14 16:27 | PCM.DC ---
Discharge Instructions Diet Discharge Diet: Light diet - advance as tolerated (if you have questions about your diet instructions, please talk to you doctor.) Activity Discharge Activity: May Not Drive (for 3-5 days or while taking narcotic pain medicine.) May shower in (days): 1 Lifting Restrictions: 10 pounds Dressing / Incision Call your doctor if your incision/area has: Continuous Slow Oozing, Sudden Increased Bleeding, Increased Pain/ Swelling, Increased Redness and Foul Smelling Discharge Call your doctor if you observe: Fever of 101 or Higher Suture Line Care: Avoid Pulling/Pushing and Avoid Pinching/Bending Additional Dressing/Incision Instructions:: Change or remove dressing in 4 days. Leave steri-strips in place for 1 week. Follow Up Care Please Follow Up With: Macho Gómez MD When: Call [phone] to make an appointment to be seen in about 10 days. Test Results: Test results from this visit will be discussed in further detail at your follow-up appointment, if applicable. Discharge Plan Admission Admit Date/Time: 07/14/21 13:06 Attending Provider: Macho Gómez Primary Care Provider: Troy Saleem Discharge Orders/Prescriptions Prescriptions: No Action NK RF: 0
[2021-07-14] MEDS: Ketorolac 30 MG/ML Syringe IV (17:52)
[2021-07-14] MEDS: Docusate Sodium 100 MG Capsule PO (20:28)
[2021-07-15 02:25] VITALS: BP 125/78; PULSE 59; RESP 16; TEMP 36.5; O2SAT 96
[2021-07-15] MEDS: Morphine 2 MG/ML Syringe IV ×3 (03:33→21:18)
--- NOTE | 2021-07-15 03:58 | NURSING ---
pt ambulating in the halls. pt walked 2 full laps. tolerated well
--- NOTE | 2021-07-15 05:31 | PCM.PN.SRG ---
Subjective Subjective Patient is complaining of very severe right shoulder tip pain. He did get some improvement with a single dose of Toradol last night. He is not able to lie supine. Sitting also is very uncomfortable. He has not had any flatus. Objective Data Objective Data Vital Signs: Vital Signs Temp Pulse Resp BP Pulse Ox 97.7 F L 59 L 16 125/78 H 96 07/15/21 02:25 07/15/21 02:25 07/15/21 02:25 07/15/21 02:25 07/15/21 02:25 Oxygen Flow Rate (L/min) 2 Oxygen Delivery Method Room Air Weight: 271 lb 2.697 oz Body Mass Index (BMI) 38.9 Intake & Output: Intake and Output for Last 24 Hours 07/13/21 07/14/21 07/15/21 23:59 23:59 23:59 Intake Total 600 / 600 Balance 600 / 600 Lab / Micro Data Result Diagrams: 07/07/21 08:47 07/07/21 08:47 Micro: Microbiology 07/07/21 09:04 Interface Orders SARS-CoV-2 Antigen (Rapid) - Final Radiography Diagnostic Testing: Radiology Impression Cholangiogram 07/14/21 08:12 IMPRESSION: Unremarkable intraoperative cholangiogram. Electronically Signed: Dane Rivero MD at 10:12 EST , Physical Exam Resp normal respiratory effort and clear to auscultation bilaterally GI GI Narrative: Soft, distended, the patient's not able to lie supine due to his shoulder discomfort. No particular tenderness. Diminished bowel sounds. Dressings are clean and dry Assessment & Plan Assessment/Plan (1) Cholelithiasis with chronic cholecystitis: QUALIFIERS: Cholelithiasis location: gallbladder Biliary obstruction: without biliary obstruction Qualified Code(s): K80.10 - Calculus of gallbladder with chronic cholecystitis without obstruction (2) Ventral hernia: QUALIFIERS: Obstruction and gangrene presence: without obstruction or gangrene Qualified Code(s): K43.9 - Ventral hernia without obstruction or gangrene (3) Diverticulum of large intestine: (4) Hydrops: PLAN: I will await morning laboratory. The patient had a significant amount of inflammation between the gallbladder and the liver bed. I want to assure that the blood count somewhat stable prior to prescribing any additional NSAIDs. The patient is able to ambulate and have encouraged him to continue. No flatus as of yet. We will cautiously advance diet at noon. Macho Gómez M.D., F.A.C.S.
[2021-07-15] MEDS: Lactated Ringers 1,000 ML 30 ML IV (05:51)
[2021-07-15] MEDS: Acetaminophen 500 MG Tablet 1000 MG PO ×3 (06:20→17:23)
[2021-07-15 08:33] LABS: Absolute Lymphocyte Count 2.09 X10^3/uL (0.83-4.51); Absolute Neutrophil Count 9.1 X10^3/uL (2.0-7.7); Basophil# 0.02 X10^3/uL; Basophil% 0.2 % (0-1); Eosinophil# 0.03 X10^3/uL; Eosinophils% 0.2 % (0-5); Hematocrit 41.4 % (40-54); Hemoglobin 13.8 g/dL (13.0-16.5); Lymphocyte # 2.09 X10^3/ul (0.83-4.51); Lymphocyte % 16.9 % (19-41); Mean Corp Hgb Conc 33.3 g/dL (32-36); Mean Corpuscular Hgb 30.1 pg (27.0-32.0); Mean Corpuscular Volume 90.2 fL (80-94); Mean Platelet Vol. 11.8 fl (6.2-12.0); Monocyte# 1.06 X10^3/uL; Monocyte% 8.5 % (0-10); NRBC Flagged by Analyzer 0 % (0-5); Neutrophil # 9.14 X10^3/uL (2.7-7.7); Neutrophil % 73.7 % (47-70); Platelet Count 171 K/mm3 (150-450); RBC Distribution Width CV 13.4 % (11.6-14.6); RBC Distribution Width SD 44.6 fl (35.1-43.9); Red Blood Count 4.59 M/mm3 (4.6-6.2); White Blood Count 12.4 K/mm3 (4.4-11.0)
[2021-07-15] MEDS: 0.9% Saline Lock 10 ML Syringe IV ×2 (09:46→21:18)
[2021-07-15] MEDS: Ketorolac 30 MG/ML Syringe IV (09:46)
--- NOTE | 2021-07-15 10:10 | CASEMGMT ---
RN RAZ Face to Face with patient for initial transition planning/care coordination assessment. RN CM introduced self and role at [facility]. Patient lying in bed, alert and oriented. Patient willing to participate in assessment and is able to answer all questions appropriately. Care providers, pharmacy, and demographics verified. Patient wishes to discharge home, denies need for home health at this time. Patient states he has no further needs or concerns at this time. CM to follow for discharge planning needs that may arise. PCP: [facility] Specialists: none Preferred Pharmacy: [facility] Insurance: [employer] Prescription Benefit: yes Living Will/HPOA: none LNOK: Daughter Living Arrangements: Patient lives with daughter in a mobile home with 3 steps and railing to enter the home. Patient states he is independent at home. Transportation: self, daughter DME/HHC: Patient denies DME or previous HHC. Disposition Plan: Patient to discharge home with family support and follow-up plans in place. Jessica CH, RN, CM
[2021-07-15 10:37] VITALS: BP 152/97; PULSE 73; RESP 16; TEMP 36.5; O2SAT 96
[2021-07-15] MEDS: Docusate Sodium 100 MG Capsule PO ×2 (10:49→21:18)
[2021-07-15] MEDS: oxyCODONE 5 MG Tablet PO ×2 (12:26→17:23)
[2021-07-15 14:55] VITALS: BP 108/89; PULSE 60; RESP 18; TEMP 36.5; O2SAT 96
--- NOTE | 2021-07-15 16:42 | PN.SURG_ITS ---
Subjective Subjective The patient's right shoulder tip pain has improved. His laboratory of this morning demonstrates minimal leukocytosis. Hemoglobin stable. He has not had any flatus. He has tolerated full liquid diet. He is feeling some rumbling in the right side of his abdomen. Objective Data Objective Data Vital Signs: Vital Signs Temp Pulse Resp BP Pulse Ox 97.7 F L 60 18 108/89 H 96 07/15/21 14:55 07/15/21 14:55 07/15/21 14:55 07/15/21 14:55 07/15/21 14:55 Oxygen Flow Rate (L/min) 2 Oxygen Delivery Method Room Air Weight: 271 lb 2.697 oz Body Mass Index (BMI) 38.9 Intake & Output: Intake and Output for Last 24 Hours 07/13/21 07/14/21 07/15/21 23:59 23:59 23:59 Intake Total 600 / 600 450 / 450 Balance 600 / 600 450 / 450 Lab / Micro Data Result Diagrams: 07/15/21 08:15 07/07/21 08:47 Labs: Laboratory Results - last 24 hr 07/15/21 08:15: WBC 12.4 H, RBC 4.59 L, Hgb 13.8, Hct 41.4, MCV 90.2, MCH 30.1, MCHC 33.3, RDW Std Deviation 44.6 H, RDW Coeff of Nya 13.4, Plt Count 171, MPV 11.8, Immature Gran % (Auto) 0.500, Neut % (Auto) 73.7 H, Lymph % (Auto) 16.9 L, [place] % (Auto) 8.5, Eos % (Auto) 0.2, Baso % (Auto) 0.2, Absolute Neuts (auto) 9.1 H, Absolute Lymphs (auto) 2.09, Nucleated RBC % 0 Micro: Microbiology 07/07/21 09:04 Interface Orders SARS-CoV-2 Antigen (Rapid) - Final Assessment & Plan Assessment/Plan (1) Ventral hernia: QUALIFIERS: Obstruction and gangrene presence: without obstruction or gangrene Qualified Code(s): K43.9 - Ventral hernia without obstruction or gangrene (2) Hydrops: (3) Cholelithiasis with chronic cholecystitis: QUALIFIERS: Cholelithiasis location: gallbladder Biliary obstruction: without biliary obstruction Qualified Code(s): K80.10 - Calculus of gallbladder with chronic cholecystitis without obstruction (4) Diverticulum of large intestine: PLAN: Patient appears stable. Abdomen still slightly distended no flatus. I recommend that we continue hospitalization I have encouraged ambulation. We will recheck laboratory in the morning. Hopefully he will continue to make progress and we can discharge tomorrow. Macho Gómez M.D., F.A.C.S.
--- NOTE | 2021-07-15 19:40 | PCS.PANDOC ---
PANDEMIC DOCUMENTATION INITIATED: Date: 07/14/2021 Time: 6432
[2021-07-15 21:26] VITALS: BP 120/67; PULSE 55; RESP 18; TEMP 36.6; O2SAT 97
[2021-07-16] MEDS: Acetaminophen 500 MG Tablet 1000 MG PO ×2 (00:27→05:21)
[2021-07-16 00:29] VITALS: BP 112/65; PULSE 57; RESP 16; TEMP 36.8; O2SAT 97
[2021-07-16 05:22] VITALS: BP 144/72; PULSE 57; RESP 18; TEMP 36.7; O2SAT 97
[2021-07-16 06:07] LABS: Absolute Lymphocyte Count 1.98 X10^3/uL (0.83-4.51); Absolute Neutrophil Count 4.4 X10^3/uL (2.0-7.7); Basophil# 0.02 X10^3/uL; Basophil% 0.3 % (0-1); Eosinophil# 0.16 X10^3/uL; Eosinophils% 2.2 % (0-5); Hematocrit 38.9 % (40-54); Hemoglobin 12.8 g/dL (13.0-16.5); Lymphocyte # 1.98 X10^3/ul (0.83-4.51); Lymphocyte % 27.5 % (19-41); Mean Corp Hgb Conc 32.9 g/dL (32-36); Mean Corpuscular Hgb 29.8 pg (27.0-32.0); Mean Corpuscular Volume 90.5 fL (80-94); Mean Platelet Vol. 11.9 fl (6.2-12.0); Monocyte# 0.68 X10^3/uL; Monocyte% 9.4 % (0-10); NRBC Flagged by Analyzer 0 % (0-5); Neutrophil # 4.35 X10^3/uL (2.7-7.7); Neutrophil % 60.3 % (47-70); Platelet Count 155 K/mm3 (150-450); RBC Distribution Width CV 13.4 % (11.6-14.6); RBC Distribution Width SD 45.1 fl (35.1-43.9); White Blood Count 7.2 K/mm3 (4.4-11.0)
--- NOTE | 2021-07-16 06:32 | PN.SURG_ITS ---
Subjective Subjective Patient had flatus approximately an hour ago. He still complaining of right shoulder pain albeit somewhat improved. The abdominal discomfort is minimal. No nausea. Objective Data Objective Data Vital Signs: Vital Signs Temp Pulse Resp BP Pulse Ox 98.1 F 57 L 18 144/72 H 97 07/16/21 05:22 07/16/21 05:22 07/16/21 05:22 07/16/21 05:22 07/16/21 05:22 Oxygen Flow Rate (L/min) 2 Oxygen Delivery Method Room Air Weight: 271 lb 2.697 oz Body Mass Index (BMI) 38.9 Intake & Output: Intake and Output for Last 24 Hours 07/14/21 07/15/21 07/16/21 23:59 23:59 23:59 Intake Total 600 / 600 2228.75 / 2228.75 760 / 760 Balance 600 / 600 2228.75 / 2228.75 760 / 760 Lab / Micro Data Result Diagrams: 07/16/21 05:26 07/07/21 08:47 Labs: Laboratory Results - last 24 hr 07/15/21 08:15: WBC 12.4 H, RBC 4.59 L, Hgb 13.8, Hct 41.4, MCV 90.2, MCH 30.1, MCHC 33.3, RDW Std Deviation 44.6 H, RDW Coeff of Nya 13.4, Plt Count 171, MPV 11.8, Immature Gran % (Auto) 0.500, Neut % (Auto) 73.7 H, Lymph % (Auto) 16.9 L, [place] % (Auto) 8.5, Eos % (Auto) 0.2, Baso % (Auto) 0.2, Absolute Neuts (auto) 9.1 H, Absolute Lymphs (auto) 2.09, Nucleated RBC % 0 07/16/21 05:26: WBC 7.2, RBC 4.30 L, Hgb 12.8 L, Hct 38.9 L, MCV 90.5, MCH 29.8, MCHC 32.9, RDW Std Deviation 45.1 H, RDW Coeff of Nya 13.4, Plt Count 155, MPV 11.9, Immature Gran % (Auto) 0.300, Neut % (Auto) 60.3, Lymph % (Auto) 27.5, [place] % (Auto) 9.4, Eos % (Auto) 2.2, Baso % (Auto) 0.3, Absolute Neuts (auto) 4.4, Absolute Lymphs (auto) 1.98, Nucleated RBC % 0 Micro: Microbiology 07/07/21 09:04 Interface Orders SARS-CoV-2 Antigen (Rapid) - Final Physical Exam Resp Resp Narrative: Diminished breath sounds right base is compared to the left with some splinting. GI GI Narrative: Abdomen is soft, distended, bowel sounds are present, dressings are clean and dry Assessment & Plan Assessment/Plan (1) Hydrops: (2) Ventral hernia: QUALIFIERS: Obstruction and gangrene presence: without obstruction or gangrene Qualified Code(s): K43.9 - Ventral hernia without obstruction or gangrene (3) Cholelithiasis with chronic cholecystitis: QUALIFIERS: Cholelithiasis location: gallbladder Biliary obstruction: without biliary obstruction Qualified Code(s): K80.10 - Calculus of gallbladder with chronic cholecystitis without obstruction (4) Diverticulum of large intestine: PLAN: Patient is making good progress. Plan discharge today with slow dietary advancement as an outpatient. Macho Gómez M.D., F.A.C.S.
[2021-07-16 06:46] LABS: AST(SGOT) 29 U/L (15-37); Alanine Aminotransfer ALT/SGPT 52 U/L (16-61); Albumin, Serum 3.4 g/dL (3.2-5.0); Alkaline Phosphatase 73 U/L (45-117); Anion Gap 4 (5-15); BUN 16 mg/dL (7-18); BUN/Creat Ratio 19.2 RATIO (10-20); Calcium,Total 8.7 mg/dL (8.5-10.1); Chloride 105 mmol/L (98-107); Creatinine, Serum 0.83 mg/dL (0.70-1.30); EST Glomerular Filtration Rate 104 mL/min (>60); Est Glom Filt Rate - Afr Amer 126 mL/min (>60); Estimated Creatinine Clearance 112.38 ml/min; Globulin 3.4 g/dL (2.2-4.2); Glucose 88 mg/dL (74-106); Potassium 3.7 mmol/L (3.5-5.1); Protein, Total 6.8 g/dL (6.4-8.2); Sodium Level 137 mmol/L (136-145)
[2021-07-16 08:06] VITALS: BP 109/76; PULSE 52; RESP 16; TEMP 36.4; O2SAT 97
[2021-07-16] MEDS: Docusate Sodium 100 MG Capsule PO (08:37)
--- NOTE | 2021-07-22 08:53 | DS.PCM_ITS ---
Providers Date of Admission: 07/14/21 Primary Care Physician: Dr. Troy Saleem MD Reason For Visit: LAP ASHLEY W IOC, LAP SMALL BOWEL RESECTION Diagnosis Discharge Diagnosis (1) Hydrops: Status: Acute Code(s): R60.9 - Edema, unspecified (2) Ventral hernia: Status: Acute Code(s): K43.9 - Ventral hernia without obstruction or gangrene Qualifiers: Obstruction and gangrene presence: without obstruction or gangrene Qualified Code(s): K43.9 - Ventral hernia without obstruction or gangrene (3) Cholelithiasis with chronic cholecystitis: Status: Chronic Code(s): K80.10 - Calculus of gallbladder with chronic cholecystitis without obstruction Qualifiers: Cholelithiasis location: gallbladder Biliary obstruction: without biliary obstruction Qualified Code(s): K80.10 - Calculus of gallbladder with chronic cholecystitis without obstruction (4) Diverticulum of large intestine: Status: Acute Code(s): K57.30 - Diverticulosis of large intestine without perforation or abscess without bleeding Medications at Discharge Home Medications NK 06/11/21 hydrocodone-acetaminophen 1 tab PO Q6H PRN 3 Days #8 tab 07/16/21 Hospital Course Operations - (Ventral herniorrhaphy, laparoscopic cholecystectomy with cholangiograms, enterectomy with resection of involved segment of Meckel's diverticulum, bilateral subcostal transabdominis plane block) Summary of Care Provided Minutes Spent on Discharge: 25 Hospital Course: Patient is a 46 y/o M who presents with palpable abdominal m ass. Dr. Gómez performed a Ventral herniorrhaphy, laparoscopic cholecystectomy with cholangiograms, enterectomy with resection of involved segment of Meckel's diverticulum, bilateral subcostal transabdominis plane block on 07/14/21. Patient tolerated the procedure well. Patient's pain was difficult to control. Upon discharge, patient's shoulder pain had become a dull minimum. He was able to pass flatus. He denies nausea, vomiting. Pain was better controlled. He met discharge criteria and was discharged to home safely. Weight / BMI Weight Weight: 271 lb 2.697 oz Body Mass Index (BMI) 38.9 ABG / Lab / Microbiology Data Result Diagrams: 07/16/21 05:26 07/16/21 05:26 Microbiology: Microbiology 07/07/21 09:04 Interface Orders SARS-CoV-2 Antigen (Rapid) - Final D/C Instructions Discharge Diet: Light diet - advance as tolerated (if you have questions about your diet instructions, please talk to you doctor.) May shower in (days): 1 Call your doctor if your incision/area has: Continuous Slow Oozing, Sudden Increased Bleeding, Increased Pain/ Swelling, Increased Redness and Foul Smelling Discharge Call your doctor if you observe: Fever of 101 or Higher Suture Line Care: Avoid Pulling/Pushing and Avoid Pinching/Bending Additional Dressing/Incision Instructions: Change or remove dressing in 4 days. Leave steri-strips in place for 1 week. Please Follow Up With: Macho Gómez MD When: Call [phone] to make an appointment to be seen in about 10 days. Meaningful Use Info Meaningful Use Diagnoses (Choose all that apply): None applicable Discharge Plan Admission Admit Date/Time: 07/14/21 13:06 Primary Reason for Your Visit: Hydrops of the gallbladder with chronic cholecystitis cholelithiasis. Attending Provider: Macho Gómez Primary Care Provider: Troy Saleem Discharge Orders/Prescriptions Prescriptions: New hydrocodone-acetaminophen 5-325 mg tablet 1 tab PO Q6H PRN (Reason: pain) 3 Days Qty: 8 RF: 0 No Action NK RF: 0 Referrals / Follow Up: Troy Saleem MD [Primary Care Provider] - Disposition Disposition (needs filled in before D/C Order can be placed): Home, Self Care Charges/Coding Visit Charges Inpatient E&M: 51762 Disch Hosp (Post op)
== END 2021-07-16 09:00 | disposition home or self-care (01) | DRG 418 ==
LOC: ACINP 12:45 → MS3 12:46
PROVIDERS: Physician Assistant; Admitting Provider Surgery; PCP Internal Medicine; Referring Provider Surgery; Visit Provider Surgery
PROC: 0FT44ZZ Resection of Gallbladder, Percutaneous Endoscopic Approach (ICD-10-PCS; CPT 47610; principal; 2021-07-14 07:10)
PROC: 0FT44ZZ Resection of Gallbladder, Percutaneous Endoscopic Approach (ICD-10-PCS; CPT 44202; 2021-07-14 07:10)
DX: K80.10 Calculus of gallbladder with chronic cholecystitis without obstruction (principal); K82.1 Hydrops of gallbladder; K43.9 Ventral hernia without obstruction or gangrene; K57.50 Diverticulosis of both small and large intestine without perforation or abscess without bleeding
CPT/HCPCS: 36415; 74300; 76000; 80048; 80053; 85025; 87426; 88302; 88304; 88305; 88307; 99406; C9803; J7120; A4216; J2405; J3490

== ENCOUNTER 2021-10-07 17:58 | Emergency (ER) | payer OTHER, SELFPAY ==
[2021-10-07] VITALS (9 sets, daily range): BP systolic 127–157; BP diastolic 67–89; PULSE 49–78; RESP 15–23; TEMP 36.1–36.8; O2SAT 98–100; BMI 35.5
--- NOTE | 2021-10-07 18:04 | NURSING ---
456 STROKE ALERT CALLED
--- NOTE | 2021-10-07 18:07 | EKG12_ITS ---
Test Reason : DYSRHYTHMIA Blood Pressure : / mmHG Vent. Rate : 050 BPM Atrial Rate : 050 BPM P-R Int : 174 ms QRS Dur : 108 ms QT Int : 470 ms P-R-T Axes : 048 024 030 degrees QTc Int : 428 ms Sinus bradycardia Otherwise normal ECG Confirmed by MELO CHEATHAM, TAVIA ([id number]), script editor DIONTE LARIOS ([id number]) on 10/09/2021 9:05:14 AM Referred By: JESIKA Confirmed By:TAVIA ALEJO MD
--- NOTE | 2021-10-07 18:08 | CT_ITS ---
INDICATION: Neuro deficit, acute, stroke suspected EXAMINATION: CT BRAIN - CT Head Stroke Protocol W/O Contrast Injection TECHNIQUE: Multiple axial images were obtained of the head without intravenous contrast. A radiation dose optimization technique was used for this scan. IV Contrast dosage and agent: None. Radiation Dose (provided by facility) CTDIvol (NA ) mGy, DLP ( NA) mGy-cm COMPARISON: Not available FINDINGS: HEMISPHERES: 1. The cerebral parenchyma, ventricular system, subarachnoid spaces have normal configuration and density. There is a normal gyral pattern. There is normal rodriguez/white differentiation. No midline shift.. 2. The hemispheric white matter has normal appearance. 3. No intraparenchymal mass, hemorrhage, or acute territorial infarct. CEREBELLUM - BRAINSTEM: The cerebellum, brainstem, basilar and suprasellar cisterns have normal appearance. No Chiari malformation. PITUITARY: Infundibulum and pituitary have normal configuration. Midline structures appear normal. VESSELS: 1. No significant vascular calcifications in the cavernous carotid vessels. 2. No hyperdense vascular signs noted.. ORBITS AND PARANASAL SINUSES: 1. Normal appearance of the bony orbits. Normal appearance of the globes and retrobulbar soft tissues.. 2. Paranasal sinuses are clear. BONY ELEMENTS: Bony elements of the cranial vault, facial skeleton and skull base have normal appearance. SCALP AND SOFT TISSUES: Normal appearance of the soft tissues of the scalp and the visualized face OTHER: None CT/STROKE Brain/Head without Cont IMPRESSION: 1. Age-appropriate CT examination of the head. 2. No intracranial mass, hemorrhage or acute territorial infarct. 3. No radiographically significant sinus disease. Preliminary report called to the emergency room at 5:22 PM CDT, a verbal report was communicated to Dr. Daniel Vásquez. : The above Results were Read Back by Jorje Barrios MD to Dr Daniel MD, and understanding confirmed on 10/07/2021 18:22:20 (ET). Electronically Signed: Jorje Barrios MD at 18:24 EDT ,
--- NOTE | 2021-10-07 18:08 | CT_ITS ---
INDICATION: Neuro deficit, acute, stroke suspected EXAMINATION: CTA HEAD - CTA Head and Neck W/ Contrast Injection (and W/O Contrast Images if performed) TECHNIQUE: [place] of [place]an/head CT angiogram protocol was performed following IV contrast. 3D reconstructions were reviewed. A radiation dose optimization technique was used for this scan. IV Contrast dosage and agent: 100 mL [id number] COMPARISON: CT examination the head on the same date. FINDINGS: CTA [place] of [place]an: PETROUS AND CAVERNOUS CAROTID ARTERIES: 1. There is normal appearance of the RIGHT petrous carotid and RIGHT cavernous carotid artery. 2. There is a minimal stain of contrast within the LEFT petrous carotid, significant filling defect noted consistent with subtotal occlusion. There is reflux of contrast into the LEFT cavernous carotid. There are several incompletely occluding filling defects within the distal LEFT cavernous carotid. SUPRACLINOID CAROTID ARTERIES: Normal appearance the RIGHT supra clinoid carotid. There are several focal areas of filling defect without celestino occlusion within the LEFT supraclinoid carotid ANTERIOR CEREBRAL AND A- COMM: Normal appearance the proximal and distal segments of the anterior cerebral circulation bilaterally. MIDDLE CEREBRAL ARTERIES: 1. There is normal appearance the RIGHT MCA and its distal branches. 2. There are irregular filling defects noted within the M1 segment of the LEFT MCA without celestino occlusion. There is diminished opacification of the anterior temporal artery on the LEFT which appears to be partially occluded. The remaining M2 and distal branches of the LEFT MCA appear patent INTRACRANIAL VERTEBRAL ARTERIES AND BASILAR ARTERY: Normal appearance of the intracranial course of the vertebral arteries bilaterally, normal appearance of basilar artery to the level of the bifurcation. POSTERIOR CEREBRAL ARTERIES: Normal appearance proximal distal segments of posterior cerebral circulation bilaterally. LEFT [employer] arises from the LEFT carotid via a origin. There is a prominent posterior commuting artery and the RIGHT. DURAL SINUSES: Normal, no filling defects noted CT HEAD: The cerebral parenchyma, ventricular system and gyral pattern have normal configuration. No areas of abnormal contrast enhancement. No evidence of hemorrhage given the limitation of postcontrast imaging. CTA Neck: TECHNIQUE: CTA examination of the neck obtained with standard protocol including axial postcontrast imaging with additional planar and three-dimensional reconstructions. Aortic arch: [Normal appearance of the aortic arch and origin the great vessels.] Right carotid system: There is normal appearance RIGHT common carotid, RIGHT internal carotid arteries, and the bifurcation. Normal appearance of the external carotid circulation on the RIGHT. Left carotid system: LEFT common carotid artery is widely patent. There is occlusion of the LEFT cervical ICA from level of the carotid bulb to the skull base. LEFT ECA has normal appearance. Vertebral arteries: There is normal appearance of the vertebral arteries bilaterally without focal stenosis or occlusion. Airway and soft tissues of the neck: There is normal appearance of the musculofascial planes of suprahyoid and infrahyoid neck. Normal appearance of the visualized airway. Several small thyroid nodules are noted. No dominant thyroid masses. Cervical spine: Normal appearance of bony elements of the cervical spine. No focal stenosis or occlusion involving the cervical spinal canal. CT/STROKE CTA Head AND Neck W/Con IMPRESSION: 1. 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 This does extend into the LEFT petrous and cavernous carotid. There is partial opacification of the LEFT cavernous carotid via cross fill from the RIGHT likely via the anterior communicating artery and NISHA circulation. 2. There are incompletely occluding filling defects within the distal LEFT cavernous carotid, as well as within the LEFT MCA M1 segment which may represent incompletely occluding segments of clot and embolus. 3. There does appear to be partial occlusion of the LEFT anterior temporal artery. 4. No other evidence of intraluminal filling defects or occlusion involving the elements of [place]. 5. Incidental note of the LEFT posterior cerebral artery arising via a origin from the LEFT ICA. 6. Normal appearance of the vertebral arteries. 7. The RIGHT cervical carotid vessels have normal appearance. Preliminary report called to the emergency room at 5:46 PM CDT, a verbal report was communicated to Dr. RIGHT Vásquez. : The above Results were Read Back by Jorje Barrios MD to Ta Sanchez MD, and understanding confirmed on 10/07/2021 18:46:26 (ET). Electronically Signed: Jorje Barrios MD at 18:51 EDT ,
--- NOTE | 2021-10-07 18:09 | EDS_ITS ---
HPI History of Present Illness Chief Complaint: Neuro S/Sx Informant: patient and family Onset/Context/Timing Onset: Today Context: Gradual Onset Timing: Continuous Quality and Location: Positive for Expressive Aphasia Onset: Headache at 1:30 PM. Decreased vision left eye. Expressive aphasia. Current Severity: Mild Maximum Severity: Mild Associated Symptoms Associated Symptoms: Positive for Headache; Negative for Nausea, Vomiting and Chest Pain Narrative Narrative: 46-year-old male no significant past medical history. States that he had a headache today began around 130. He took 3 Excedrin for his headache. He then had decreased vision in his left eye. He then developed difficulty putting his words together around 3 PM. He has never had symptoms like this before. He is on no blood thinners. He has had no recent head trauma. Prior similar symptoms: No Recent Illness/Hospitalization: No PFSH PFSH Medical History Abdominal mass Alcohol use Chewing tobacco use Cholelithiasis Enlarged gallbladder Non-smoker Wears glasses Home Medications NK 06/11/21 [History Last Taken Unknown] Allergy/AdvReac Type Severity Reaction Status Date / Time diphenhydramine AdvReac Mild finger Verified 10/07/21 18:29 [From Benadryl] tips turn bright red Family History Father Cancer Diabetes Surgical History History of cholecystectomy (~06/2021) History of resection of small bowel (~06/2021) Hx of colonoscopy No significant past surgical history Social History Smoking Status: Current every day smoker tobacco type: smokeless tobacco Smokeless tobacco user: snuff alcohol intake: current substance use type: does not use ROS ROS ED ROS Narrative Headache. Decreased vision. Trouble putting his words together. Review of Systems ROS Unobtainable: Denies due to encephalopathy Constitutional Constitutional ED: Denies fever(s) Eyes Eyes: Reports blurry vision and change in vision ENT ENT ED: Denies ear pain Cardiovascular Cardiovascular: Denies chest pain or palpitations Respiratory/Chest Respiratory/Chest: Denies cough or dyspnea Gastrointestinal Gastrointestinal: Denies abdominal pain, diarrhea, nausea or vomiting Genitourinary Genitourinary ED: Denies dysuria Musculoskeletal Musculoskeletal: Denies myalgias Integumentary Denies rash Neurologic Neurologic: Reports headache(s); Denies paresthesias or weakness Psychiatric Psychiatric: Denies anxiety or depression Endocrine Endocrinology: Denies polyuria Hematologic/Lymphatic Hematologic/Lymphatic: Denies easy bruising Allergic/Immunologic Allergic/Immunologic ED: Denies urticaria EXAM Physical Exam Narrative Exam Narrative: 46-year-old male being evaluated in triage. H EENT exam he has slightly decreased vision left eye but he is able to tell me that 2 fingers being held up. Pupils round reactive light extra motions are intact. No facial droop. He has trouble putting his words together but they are not slurred. Neck nontender no bruits. Lungs are clear. Heart regular rate and rhythm no murmur. Abdomen soft nontender. Moving all 4 extremities. Equal symmetrical 5-5 parts person strength. Dorsi plantarflexion intact. Neurologically he has decreased vision left eye. He has dysarthria where his trouble putting his words together but they are not slurred. Const Vital Signs: 10/07/21 18:01 10/07/21 18:04 10/07/21 18:32 Temperature 97 F L 97.2 F L Temperature Source Temporal Temporal Pulse Rate 53 L 49 L Respiratory Rate 16 16 Blood Pressure 127/67 H 136/75 H Blood Pressure Mean 87 95 Pulse Ox 100 98 Oxygen Delivery Method Room Air Room Air 10/07/21 18:38 10/07/21 19:00 Temperature Temperature Source Pulse Rate 58 L Respiratory Rate 15 Blood Pressure 130/75 H 141/81 H Blood Pressure Mean 93 Pulse Ox 100 Oxygen Delivery Method Room Air Positive well nourished, well developed and obese; Negative for cachectic, contractures or unkempt General Appearance ED: well developed and NAD; Negative for unkempt, cachectic or contractures Nutritional Appearance: obese; Negative for cachectic HEENT Reports moist mucous membranes atraumatic; Negative for trauma Eyes PERRL and EOMs intact bilaterally General Eye ED: Negative for pale conjunctiva or scleral icterus Neck no lymphadenopathy, supple and no JVD General: Negative for tenderness Chest Wall inspection of chest normal and palpation of chest normal Resp normal respiratory effort and clear to auscultation bilaterally Auscultation: Negative for rales, rhonchi or wheezes Cardio no murmurs Rate: regular rate Rhythm: regular rhythm Heart Sounds: S1 normal and S2 normal GI normal to inspection, nondistended, normoactive bowel sounds, soft to palpation, non-tender, non-distended and no masses Inspection: Negative for abdominal distention Auscultation: normoactive bowel sounds Palpation: Negative for tender, guarding or rebound tenderness present Back/Spine no CVA tenderness General Back: Negative for CVA tenderness Cervical Spine: Negative for cervical spine tenderness Thoracic Spine / Upper Back: Negative for thoracic spinal tenderness Extremity normal to inspection General Extremety ED: Negative for deformity, edema or tenderness General Extremity: Negative for deformity or edema Neuro oriented x3 Sensorium / Orientation: alert, oriented to person, oriented to place and oriented to time; Negative for orientation impaired, confused, lethargic or stuporous Speech: Negative for speech normal Motor Exam: strength 5/5 throughout Psych mental status grossly normal Appearance: Negative for unkempt Attitude: No agitated Mood & Affect: Negative for depressed or tearful Skin no wounds General Skin Exam: Negative for jaundice Lesions: no lesions Rashes: no rashes STROKE Vital Signs/Narrative: Vital Signs Temp Pulse Resp BP Pulse Ox 10/07/21 19:00 141/81 H 10/07/21 18:38 58 L 15 130/75 H 100 10/07/21 18:32 49 L 16 136/75 H 98 10/07/21 18:04 97.2 F L 53 L 16 127/67 H 100 10/07/21 18:01 97 F L Inital Vital Signs reviewed: Yes MDM MDM MDM Narrative Medical decision making narrative: 46-year-old male presented to triage with headache, decreased vision left eye and difficulty speaking. Is made a stroke team. I did a rapid evaluation on him in triage. He was taken directly to CAT scan for a CTA of his head neck. Patient history of evaluation also by the [facility] neurologist. Given the patient's dysarthria, onset of symptoms he was a tPA candidate. Both myself and the neurologist discussed this while he was examining the patient. I also discussed with the patient's daughter at bedside. They know risk and benefits. They noted the risk of intracranial bleed is about 6%. Both the patient and daughter are okay with the tPA being given. Its been ordered from pharmacy. Due to the patient's CTA results of his head neck with filling defect of the left MCA and occlusion of the left internal carotid artery he will be life flighted down to [facility] in case thrombectomy or other procedures are needed. I discussed this with the patient and family they are aware. Lab Data Attestation: I reviewed the patient's lab results. Lab results narrative: CBC shows a white count 8. H&H of 13 and 39. Platelets 162. PT, INR and PTT are normal. Electrolytes show a gap of 4. Normal BUN and creatinine. Glucose of 94. Troponin normal at 5. Alcohol negative. CT of the brain shows no acute abnormality. This was a plain CT without contrast read by the radiologist and reviewed by me. CTA of the head neck read by the radiologist shows left internal carotid artery occlusion and the left middle cerebral artery filling defect. Labs: Laboratory Results - last 24 hr 10/07/21 10/07/21 10/07/21 18:20 18:20 18:20 WBC 8.0 RBC 4.41 L Hgb 13.3 Hct 39.9 L MCV 90.5 MCH 30.2 MCHC 33.3 RDW Std Deviation 43.9 RDW Coeff of Nya 13.2 Plt Count 162 MPV 11.8 Immature Gran % (Auto) 0.100 Neut % (Auto) 55.8 Lymph % (Auto) 29.5 [place] % (Auto) 9.5 Eos % (Auto) 4.6 Baso % (Auto) 0.5 Absolute Neuts (auto) 4.5 Absolute Lymphs (auto) 2.36 Nucleated RBC % 0 PT 12.2 INR 0.9 APTT 27.1 Sodium 140 Potassium 3.7 Chloride 108 H Carbon Dioxide 28.0 Anion Gap 4 L BUN 16 Creatinine 0.92 Estim Creat Clear Calc 107.78 Est GFR (MDRD) Af Amer 113 Est GFR (MDRD) Non-Af 93 BUN/Creatinine Ratio 17.4 Glucose 94 Calcium 8.2 L Troponin I High Sens 5 Ethyl Alcohol 10/07/21 18:20 WBC RBC Hgb Hct MCV MCH MCHC RDW Std Deviation RDW Coeff of Nya Plt Count MPV Immature Gran % (Auto) Neut % (Auto) Lymph % (Auto) [place] % (Auto) Eos % (Auto) Baso % (Auto) Absolute Neuts (auto) Absolute Lymphs (auto) Nucleated RBC % PT INR APTT Sodium Potassium Chloride Carbon Dioxide Anion Gap BUN Creatinine Estim Creat Clear Calc Est GFR (MDRD) Af Amer Est GFR (MDRD) Non-Af BUN/Creatinine Ratio Glucose Calcium Troponin I High Sens Ethyl Alcohol < 3.0 Radiography Diagnostic Testing: Clinical Impression(s) from Imaging Studies Brain CT 10/07/21 18:08 IMPRESSION: 1. Age-appropriate CT examination of the head. 2. No intracranial mass, hemorrhage or acute territorial infarct. 3. No radiographically significant sinus disease. Preliminary report called to the emergency room at 5:22 PM CDT, a verbal report was communicated to Dr. Daniel Vásquez. : The above Results were Read Back by Jorje Barrios MD to Dr Daniel MD, and understanding confirmed on 10/07/2021 18:22:20 (ET). Electronically Signed: Jorje Barrios MD at 18:24 EDT , ADDENDUM: 10/07/21 1831 IMPRESSION: 1. Age-appropriate CT examination of the head. 2. No intracranial mass, hemorrhage or acute territorial infarct. 3. No radiographically significant sinus disease. Preliminary report called to the emergency room at 5:22 PM CDT, a verbal report was communicated to Dr. Daniel Vásquez. : The above Results were Read Back by Jorje Barrios MD to Dr Daniel MD, and understanding confirmed on 10/07/2021 18:22:20 (ET). Electronically Signed: Jorje Barrios MD at 18:24 EDT , Head/Neck CTA 10/07/21 18:08 IMPRESSION: 1. 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 This does extend into the LEFT petrous and cavernous carotid. There is partial opacification of the LEFT cavernous carotid via cross fill from the RIGHT likely via the anterior communicating artery and NISHA circulation. 2. There are incompletely occluding filling defects within the distal LEFT cavernous carotid, as well as within the LEFT MCA M1 segment which may represent incompletely occluding segments of clot and embolus. 3. There does appear to be partial occlusion of the LEFT anterior temporal artery. 4. No other evidence of intraluminal filling defects or occlusion involving the elements of mentasta of Tran. 5. Incidental note of the LEFT posterior cerebral artery arising via a origin from the LEFT ICA. 6. Normal appearance of the vertebral arteries. 7. The RIGHT cervical carotid vessels have normal appearance. Preliminary report called to the emergency room at 5:46 PM CDT, a verbal report was communicated to Dr. RIGHT Vásquez. : The above Results were Read Back by Jorje Barrios MD to Ta Sanchez MD, and understanding confirmed on 10/07/2021 18:46:26 (ET). Electronically Signed: Jorje Barrios MD at 18:51 EDT , ADDENDUM: 10/07/21 6917 IMPRESSION: 1. 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 This does extend into the LEFT petrous and cavernous carotid. There is partial opacification of the LEFT cavernous carotid via cross fill from the RIGHT likely via the anterior communicating artery and NISHA circulation. 2. There are incompletely occluding filling defects within the distal LEFT cavernous carotid, as well as within the LEFT MCA M1 segment which may represent incompletely occluding segments of clot and embolus. 3. There does appear to be partial occlusion of the LEFT anterior temporal artery. 4. No other evidence of intraluminal filling defects or occlusion involving the elements of mentasta of Tran. 5. Incidental note of the LEFT posterior cerebral artery arising via a origin from the LEFT ICA. 6. Normal appearance of the vertebral arteries. 7. The RIGHT cervical carotid vessels have normal appearance. Preliminary report called to the emergency room at 5:46 PM CDT, a verbal report was communicated to Dr. RIGHT Vásquez. : The above Results were Read Back by Jorje Barrios MD to Ta Sanchez MD, and understanding confirmed on 10/07/2021 18:46:26 (ET). Electronically Signed: Jorje Barrios MD at 18:51 EDT , Chest X-Ray 10/07/21 18:25 IMPRESSION: There are no acute findings. Electronically Signed: Taiwo Jiang MD at 18:44 EDT , Chest x-ray interpreted by me and the radiologist shows no acute abnormality. Normal cardiac silhouette. Portable, single view. Rhythm Strip Rhythm Strip: Sinus Rhythm Rate: 50 EKG Initial EKG: Attestation: I personally reviewed and interpreted this EKG as follows: Interpretation: Sinus Rhythm and Sinus Bradycardia Comments: Sinus bradycardia rate of 50 no acute signs of ID nor ischemia. No dysrhythmia. Prior EKG tracings: not available for review Stroke Documentation Questions Stroke Team Activated: Yes Reviewed Inclusion/Exclusion criteria: Yes Was Patient considered for Endovascular Intervention?: No-CTA negative, determined not to be an endovascular candidate IV Alteplase (t-PA) Administered: Yes No contraindications for IV Alteplase (t-PA) administration.: No Alteplase (t-PA) risks, benefits, alternative discussed: Yes Not given: Patient refusal: No Critical Care Time Critical Care Time: Yes Critical care time (excluding procedures): 30-74 minutes, Including time spent:, Discussing w/Patient &/or Family/Salvage Cutter, Discussing w/Consultants, Arranging Admission or Transfer, Performing Direct Patient Care at Bedside and - (32 min) Discharge Plan Triage Chief Complaint: Neuro S/Sx ED Provider: Wu Sanchez Dx/Rx/DC Orders Clinical Impression: Stroke, Acute ischemic left MCA stroke Prescriptions: No Action NK RF: 0 Primary Care Provider: Troy Saleem Referrals: Troy Saleem MD [Primary Care Provider] - Disposition Disposition: Acute Care Hospital
--- NOTE | 2021-10-07 18:10 | CM.ED ---
Social Work This social work associate responding to stroke alert. Patient daughter present, support provided. Per patient daughter, patient spouse is on the way to the hospital. Patient alert and speaking with medical team. Will continue to follow as needed. Jayson DE LEON, KATHERIN
--- NOTE | 2021-10-07 18:14 | NURSING ---
FACESHEET FAXED TO [facility]
--- NOTE | 2021-10-07 18:25 | RAD_ITS ---
STUDY: X-RAY CHEST REASON FOR EXAM: Male, 46 years old. CHEST PAIN Neuro deficit, acute, stroke suspected TECHNIQUE: XR Chest 1 View COMPARISON: None FINDINGS: There is no demonstrated pleural abnormality. Normal size heart. Normal mediastinum and denies. Normal visualized pulmonary arteries. Normal visualized aortic arch and descending thoracic aorta. Normal visualized thoracic spine. Normal visualized ribs, clavicles, and shoulders. There is no demonstrated abnormality of the visualized soft tissue structures of the upper abdomen. RAD/Chest 1 View IMPRESSION: There are no acute findings. Electronically Signed: Taiwo Jiang MD at 18:44 EDT ,
[2021-10-07 18:28] LABS: Absolute Lymphocyte Count 2.36 X10^3/uL (0.83-4.51); Absolute Neutrophil Count 4.5 X10^3/uL (2.0-7.7); Basophil# 0.04 X10^3/uL; Basophil% 0.5 % (0-1); Eosinophil# 0.37 X10^3/uL; Eosinophils% 4.6 % (0-5); Hematocrit 39.9 % (40-54); Hemoglobin 13.3 g/dL (13.0-16.5); Lymphocyte # 2.36 X10^3/ul (0.83-4.51); Lymphocyte % 29.5 % (19-41); Mean Corp Hgb Conc 33.3 g/dL (32-36); Mean Corpuscular Hgb 30.2 pg (27.0-32.0); Mean Corpuscular Volume 90.5 fL (80-94); Mean Platelet Vol. 11.8 fl (6.2-12.0); Monocyte# 0.76 X10^3/uL; Monocyte% 9.5 % (0-10); NRBC Flagged by Analyzer 0 % (0-5); Neutrophil # 4.47 X10^3/uL (2.7-7.7); Neutrophil % 55.8 % (47-70); Platelet Count 162 K/mm3 (150-450); RBC Distribution Width CV 13.2 % (11.6-14.6); RBC Distribution Width SD 43.9 fl (35.1-43.9); Red Blood Count 4.41 M/mm3 (4.6-6.2)
[2021-10-07] MEDS: 0.9% Normal Saline 1,000 ML 999 ML IV (18:37)
[2021-10-07 18:41] LABS: International Normalized Ratio 0.9; Prothrombin Time (Protime)PT. 12.2 SECONDS (11.7-14.9)
[2021-10-07 18:42] LABS: Anion Gap 4 (5-15); BUN 16 mg/dL (7-18); BUN/Creat Ratio 17.4 RATIO (10-20); Calcium,Total 8.2 mg/dL (8.5-10.1); Chloride 108 mmol/L (98-107); Creatinine, Serum 0.92 mg/dL (0.70-1.30); EST Glomerular Filtration Rate 93 mL/min (>60); Est Glom Filt Rate - Afr Amer 113 mL/min (>60); Estimated Creatinine Clearance 107.78 ml/min; Glucose 94 mg/dL (74-106); Partial Thromboplast Time 27.1 Seconds (24.1-36.2); Potassium 3.7 mmol/L (3.5-5.1); Sodium Level 140 mmol/L (136-145); Troponin-I HS 5 pg/mL (3.0-78.0)
--- NOTE | 2021-10-07 18:48 | CM.ED ---
Social Work This social work case manager to follow up with patient/patient family in room. Patient spouse now present. Support provided. Will continue to follow. Jayson DE LEON, KATHERIN
[2021-10-07 18:52] LABS: Alcohol, Blood (Medical)-Serum < 3.0 mg/dL
--- NOTE | 2021-10-07 19:40 | ED.RN ---
CARE TRANSFERRED TO FLIGHT RN. [address] Alton MACHUCA RN
--- NOTE | 2021-10-07 20:31 | ED.RN ---
PRIOR TO TRANSFER TO FLIGHT CREW PT HAD CHANGE IN [facility] SCORE. CHANGE BROUGHT TO DR MONDRAGON'S ATTENTION. RE-EVALUATION COMPLETED BY ED DR. NO CHANGE IN TPA OR CARE. Alton MACHUCA RN
[2021-10-08 13:51] LABS: Bedside Glucose 98 mg/dL (74-106)
== END 2021-10-07 19:41 | disposition short-term general hospital (02) ==
PROVIDERS: Emergency Provider Emergency Medicine; PCP Internal Medicine; Visit Provider Emergency Medicine
DX: I63.512 Cerebral infarction due to unspecified occlusion or stenosis of left middle cerebral artery (principal); F17.220 Nicotine dependence, chewing tobacco, uncomplicated; R47.1 Dysarthria and anarthria; R47.01 Aphasia; Z87.19 Personal history of other diseases of the digestive system; E66.9 Obesity, unspecified; Z68.35 Body mass index [BMI] 35.0-35.9, adult
CPT/HCPCS: 51702; 70450; 70496; 70498; 71045; 80048; 82077; 82962; 84484; 85025; 85610; 85730; 93005; 96365; 99285; J2997; Q9967; A4216

== ENCOUNTER → 2021-11-13 | Outpatient (CLI) | payer OTHER, SELFPAY | END | disposition home or self-care (01) | LOC: SL 20:50 | PROVIDERS: PCP Internal Medicine; Visit Provider Internal Medicine | DX: G47.10 Hypersomnia, unspecified (principal); R06.83 Snoring; Z86.73 Personal history of transient ischemic attack (TIA), and cerebral infarction without residual deficits | CPT/HCPCS: 95810 ==